=== PATIENT | male | born 1985 | race Caucasian/White ===

== ENCOUNTER 2023-10-03 10:53 | Emergency (ER) | payer OTHER, SELFPAY ==
[2023-10-03 10:55] VITALS: BP 131/81; PULSE 77; RESP 18; TEMP 36.3; O2SAT 96
--- NOTE | 2023-10-03 11:10 | EKG12_ITS ---
Test Reason : SYNCOPE Blood Pressure : / mmHG Vent. Rate : 098 BPM Atrial Rate : 098 BPM P-R Int : 142 ms QRS Dur : 084 ms QT Int : 340 ms P-R-T Axes : 022 055 037 degrees QTc Int : 434 ms Normal sinus rhythm Normal ECG Confirmed by EMANUEL ALEJANDRA, LE ([id number]), video tape editor ADRIANE MELTON ([id number]) on 10/06/2023 1:33:09 P M Referred By: JANIS/SAMARIA Confirmed By:LIZA CASTELLANOS MD
--- NOTE | 2023-10-03 11:12 | EX.ED.DYSGE1 ---
HPI <DAMIEN Monson - Last Filed: 10/03/23 12:17> History of Present Illness Chief Complaint: Syncope Narrative Narrative: Patient is a 38-year-old male with no significant medical history presents to the emergency department after a syncopal episode. Patient dates over the last 4 to 5 days, he is having intermittent cough, fever and chills. Early this morning around 3 in the morning, he said he got sweaty, felt slightly lightheaded and had a significant amount of vomitus. Patient ate after he vomited he felt much better. He was able go back to sleep, this morning, he was at the [facility] because his is having a elective surgery. He states that he felt the same feelings such as sweaty, started feeling dizzy and thought he was going to vomit, he then had a syncopal episode. He denies any injury, he states he was surrounded by nursing staff who referred him to the emergency department. Patient dates he now feels better. Denies any chest pain, shortness of breath, denies any recent travel, patient still complains of cough. PFSH <DAMIEN Monson - Last Filed: 10/03/23 12:17> [facility] Home Medications ondansetron 4 mg disintegrating tablet 4 mg PO Q8H PRN PRN Nausea #10 tabs 10/03/23 [Rx Last Taken Unknown] Allergy/AdvReac Type Severity Reaction Status Date / Time No Known Allergies Allergy Verified 10/03/23 10:54 Social History Smoking Status: Never smoker ROS <DAMIEN Monson - Last Filed: 10/03/23 12:17> ROS ED ROS Narrative Constitutional: Negative for fever, chills, weight loss, weakness Eyes: Negative for vision loss, vision change, double vision ENT: Negative for any sore throat, ear pain, congestion Cardiovascular: Negative for any chest pain, tightness, palpitations Respiratory: Negative for any cough, sputum production, hemoptysis, dyspnea, dyspnea on exertion, orthopnea Gastrointestinal: Negative for any abdominal pain, diarrhea, constipation, blood in stool, blood in vomit. Positive for nausea and vomiting : Negative for any urinary frequency, dysuria, retention, blood in urine Muscle skeletal: Negative for any myalgias, arthralgias, neck pain, back pain Neurological: Negative for any headache, numbness or tingling. Positive feeling lightheaded, syncope Skin: Negative for any rashes, lumps, itching, abrasions, lacerations Psychiatric: Negative for any depression, anxiety, stress, suicidal ideation, homicidal ideation Hematologic: Negative for any easy bruising, excessive bruising, easy bleeding Allergies: Negative for any eczema, hives, rash EXAM <DAMIEN Monson - Last Filed: 10/03/23 12:17> Physical Exam Narrative Exam Narrative: Vital signs reviewed. HEET: Head normocephalic atraumatic, TMs clear bilaterally. Posterior pharynx is clear, moist mucous membranes. Nares clear bilaterally. Neck: Supple with no lymphadenopathy or tenderness. No signs of meningismus. Cardiac: Regular rate and rhythm no murmurs gallops or rubs, equal peripheral pulses bilaterally. Respiratory: Lungs clear to auscultation bilaterally. No chest tenderness. Abdomen: Soft, nontender, nondistended. No abdominal bruit or pulsatile masses. No hepatosplenomegaly Extremities: No peripheral edema, no signs of gross trauma or deformity. Active full range of motion of all extremities. Neuro: Cranial nerves II through XII intact, no focal neurological deficits. NIH score 0 Skin: Clean dry and intact with no rash, purpura, petechiae, vesicles or pustules. Slight pale appearance Backs/flank: No CVA tenderness, no midline spinal tenderness, no deformity. Psych: Normal mood and affect. No SI, HI or acute psychosis. Const Vital Signs: 10/03/23 10:55 10/03/23 12:09 10/03/23 12:12 Temperature 97.4 F L Temperature Source Temporal Pulse Rate 77 76 Respiratory Rate 18 15 Respiratory Effort Normal Non-Labored Respiratory Pattern Normal Blood Pressure 131/81 H 155/91 H Blood Pressure Mean 97 112 Pulse Ox 96 98 Oxygen Delivery Method Room Air Room Air 10/03/23 12:24 Temperature Temperature Source Pulse Rate 75 Respiratory Rate 16 Respiratory Effort Respiratory Pattern Blood Pressure 142/76 H Blood Pressure Mean 98 Pulse Ox 99 Oxygen Delivery Method <Gonzalez Verma MD - Last Filed: 10/03/23 14:01> Physical Exam Const Vital Signs: 10/03/23 10:55 10/03/23 12:09 10/03/23 12:12 Temperature 97.4 F L Temperature Source Temporal Pulse Rate 77 76 Respiratory Rate 18 15 Respiratory Effort Normal Non-Labored Respiratory Pattern Normal Blood Pressure 131/81 H 155/91 H Blood Pressure Mean 97 112 Pulse Ox 96 98 Oxygen Delivery Method Room Air Room Air 10/03/23 12:24 Temperature Temperature Source Pulse Rate 75 Respiratory Rate 16 Respiratory Effort Respiratory Pattern Blood Pressure 142/76 H Blood Pressure Mean 98 Pulse Ox 99 Oxygen Delivery Method MDM <Eris Patten [employer]-C - Last Filed: 10/03/23 12:17> [facility] Lab Data Labs: Laboratory Results - last 24 hr 10/03/23 11:10 WBC 5.5 RBC 4.90 Hgb 15.1 Hct 43.7 MCV 89.2 MCH 30.8 MCHC 34.6 RDW Std Deviation 38.3 RDW Coeff of Dirk 11.9 Plt Count 233 MPV 8.5 Immature Gran % (Auto) 0.700 Neut % (Auto) 75.0 H Lymph % (Auto) 11.9 L [place] % (Auto) 11.0 H Eos % (Auto) 0.9 Baso % (Auto) 0.5 Absolute Neuts (auto) 4.2 Absolute Lymphs (auto) 0.66 L Nucleated RBC % 0 Sodium 137 Potassium 4.0 Chloride 104 Carbon Dioxide 27.0 Anion Gap 6 BUN 11 Creatinine 1.18 Est GFR (MDRD) Af Amer 89 Est GFR (MDRD) Non-Af 74 BUN/Creatinine Ratio 9.3 L Glucose 120 H Calcium 9.0 Total Bilirubin 0.50 AST 22 ALT 46 Alkaline Phosphatase 52 Troponin I High Sens 3 Total Protein 7.6 Albumin 3.9 Globulin 3.7 Albumin/Globulin Ratio 1.1 Lipase 25 EKG EKG shows normal sinus rhythm, rate of 98 bpm, MI 142 ms, QRS duration 84 ms,: Attestation: I personally reviewed and interpreted this EKG as follows: Comments: No acute ST elevation, no acute infarct noted. Treatment and Re-Evaluation :: Patient appears generally well, patient appears nontoxic, vital signs are stable. Presenting to the emergency department after having a syncopal episode, patient has been sick over the last week. Differential diagnosis includes viral-like infection, dehydration, DEREK, seizure disorder, vasovagal syncope. Patient received basic laboratory values ensure there is no leukocytosis, electrolyte imbalance, troponin will be completed. EKG will be completed and was normal. Patient received IV fluids, IV Zofran. Patient be reevaluated. On reevaluation, the patient was feeling much better. Patient was able to walk around the room with no discomfort. Patient was not dizzy. At this time, usually the patient had a vasovagal like response secondary to having nausea and vomiting illness. He will be given a prescription for Zofran, he will continue to drink fluids such as Gatorade and water. EKG was unremarkable. Patient is happy with the plan of care, patient stable for discharge given return precautions. <Gonzalez Verma MD - Last Filed: 10/03/23 14:01> [facility] MDM Narrative Medical decision making narrative: Dr. Verma: I have personally performed a face to face assessment of the patient and have reviewed the AJ Note. I performed a substantive portion of the visit including all aspects of the following. My monreal findings include: History is syncopal episode. URI type symptoms. Had nausea and vomiting, passed out in the bathroom. Exam is afebrile. Vital signs noted. Regular rate and rhythm. Lungs clear to auscultation bilaterally. Abdomen soft nontender with normal active bowel sounds. Neurological examination nonfocal, nonlateralizing. Medical Decision Making: Check EKG. Check laboratory work. Check COVID swab. I do not feel chest x-ray is indicated, pulse ox is 96 to 99% on room air. Sounds like he had more of a vasovagal type syncope. Is able to ambulate in the ED without difficulty. Discharge. Other additions or changes: [None] History & Record Review Discussion w/independent historian: Patient Lab Data Attestation: I reviewed the patient's lab results. Labs: Laboratory Results - last 24 hr 10/03/23 11:10 WBC 5.5 RBC 4.90 Hgb 15.1 Hct 43.7 MCV 89.2 MCH 30.8 MCHC 34.6 RDW Std Deviation 38.3 RDW Coeff of Dirk 11.9 Plt Count 233 MPV 8.5 Immature Gran % (Auto) 0.700 Neut % (Auto) 75.0 H Lymph % (Auto) 11.9 L [place] % (Auto) 11.0 H Eos % (Auto) 0.9 Baso % (Auto) 0.5 Absolute Neuts (auto) 4.2 Absolute Lymphs (auto) 0.66 L Nucleated RBC % 0 Sodium 137 Potassium 4.0 Chloride 104 Carbon Dioxide 27.0 Anion Gap 6 BUN 11 Creatinine 1.18 Est GFR (MDRD) Af Amer 89 Est GFR (MDRD) Non-Af 74 BUN/Creatinine Ratio 9.3 L Glucose 120 H Calcium 9.0 Total Bilirubin 0.50 AST 22 ALT 46 Alkaline Phosphatase 52 Troponin I High Sens 3 Total Protein 7.6 Albumin 3.9 Globulin 3.7 Albumin/Globulin Ratio 1.1 Lipase 25 Discharge Plan Triage Chief Complaint: Syncope ED Midlevel Provider: Eris Patten ED Provider: Gonzalez Verma Dx/Rx/DC Orders Clinical Impression: Syncope, vasovagal, Viral syndrome, Nausea & vomiting Instructions: Causes of Syncope Prescriptions: New ondansetron 4 mg tablet,disintegrating 4 mg PO Q8H PRN PRN (Reason: Nausea) Qty: 10 0RF Primary Care Provider: Emile Blake Referrals: Emile Blake PA [Primary Care Provider] - Activity Restrictions/Additional Instructions: Maintain hydration, if you do start to feel nauseous just sit down. Use the Zofran as needed. Disposition Disposition: Home, Self Care Discharge Date/Time: 10/03/23 12:26
[2023-10-03] MEDS: 0.9% Normal Saline (1000mL) 1,000 ML 1000 ML IV (11:18)
[2023-10-03] MEDS: Ondansetron 4 MG/2 ML Vial IV (11:18)
[2023-10-03 11:24] LABS: Absolute Lymphocyte Count 0.66 X10^3/uL (0.83-4.51); Absolute Neutrophil Count 4.2 X10^3/uL (2.0-7.7); Basophil# 0.03 X10^3/uL; Basophil% 0.5 % (0-1); Eosinophil# 0.05 X10^3/uL; Eosinophils% 0.9 % (0-5); Hematocrit 43.7 % (40-54); Hemoglobin 15.1 g/dL (13.0-16.5); Lymphocyte # 0.66 X10^3/ul (0.83-4.51); Lymphocyte % 11.9 % (19-41); Mean Corp Hgb Conc 34.6 g/dL (32-36); Mean Corpuscular Hgb 30.8 pg (27.0-32.0); Mean Corpuscular Volume 89.2 fL (80-94); Mean Platelet Vol. 8.5 fl (6.2-12.0); Monocyte# 0.61 X10^3/uL; NRBC Flagged by Analyzer 0 % (0-5); Neutrophil # 4.15 X10^3/uL (2.7-7.7); Platelet Count 233 K/mm3 (150-450); RBC Distribution Width CV 11.9 % (11.6-14.6); RBC Distribution Width SD 38.3 fl (35.1-43.9); White Blood Count 5.5 K/mm3 (4.4-11.0)
[2023-10-03 11:41] LABS: ALB/GLOB Ratio 1.1 RATIO (0.9-2.4); AST(SGOT) 22 U/L (15-37); Alanine Aminotransfer ALT/SGPT 46 U/L (16-61); Albumin, Serum 3.9 g/dL (3.2-5.0); Alkaline Phosphatase 52 U/L (45-117); Anion Gap 6 (5-15); BUN 11 mg/dL (7-18); BUN/Creat Ratio 9.3 RATIO (10-20); Chloride 104 mmol/L (98-107); Creatinine, Serum 1.18 mg/dL (0.70-1.30); EST Glomerular Filtration Rate 74 mL/min (>60); Est Glom Filt Rate - Afr Amer 89 mL/min (>60); Globulin 3.7 g/dL (2.2-4.2); Glucose 120 mg/dL (74-106); Lipase 25 U/L (13-75); Protein, Total 7.6 g/dL (6.4-8.2); Sodium Level 137 mmol/L (136-145); Troponin-I HS 3 pg/mL (3.0-78.0)
[2023-10-03 12:09] VITALS: BP 155/91; PULSE 76; RESP 15; O2SAT 98
[2023-10-03 12:24] VITALS: BP 142/76; PULSE 75; RESP 16; O2SAT 99
== END 2023-10-03 12:26 | disposition home or self-care (01) ==
PROVIDERS: Nurse Practitioner; Emergency Provider Emergency Medicine; PCP Physician Assistant; Visit Provider Emergency Medicine
DX: R55 Syncope and collapse (principal); R11.2 Nausea with vomiting, unspecified; B34.9 Viral infection, unspecified
CPT/HCPCS: 80053; 83690; 84484; 85025; 87428; 93005; 96361; 96374; 99283; J7030; A4216; J2405